=== PATIENT | female | born 1955 | race Caucasian/White ===

== ENCOUNTER 2021-03-08 11:00 | Emergency (ER) | payer OTHER ==
[~2021-03-08 11:00] MED LIST: ATROVENT HFA12.9 GM; CATAPRES0.3 MG; HYDROCODON-ACE1 EA12 PO; INDOMETHACIN25 MG PO; PREDNISONE5 MG
[2021-03-08] MEDS ORDERED: KETOROLAC TROMETHAMINE 30 MG/ML VIAL ONE (11:22)
[2021-03-08] MEDS ORDERED: LIDOCAINE 4% PATCH TP ONE (11:22)
== END 2021-03-08 15:20 | disposition home or self-care (01) ==
LOC: ER 11:00
DX: M54.5 Low back pain (principal); X50.1XXA Overexertion from prolonged static or awkward postures, initial encounter; E11.65 Type 2 diabetes mellitus with hyperglycemia; I50.9 Heart failure, unspecified; J44.9 Chronic obstructive pulmonary disease, unspecified; Z95.5 Presence of coronary angioplasty implant and graft; Z86.73 Personal history of transient ischemic attack (TIA), and cerebral infarction without residual deficits
CPT/HCPCS: 72131; 99284; J1885

== ENCOUNTER 2024-01-14 15:25 | Emergency (ER) | payer MEDICARE, OTHER ==
[~2024-01-14] VITALS: Ht 165.1 cm; Wt 111.1 kg
[2024-01-14 18:50] VITALS: O2SAT 96
== END 2024-01-14 19:16 ==
LOC: ER 15:34
DX: E83.52 Hypercalcemia (principal); I10 Essential (primary) hypertension; E11.9 Type 2 diabetes mellitus without complications; J44.9 Chronic obstructive pulmonary disease, unspecified; I50.9 Heart failure, unspecified; Z95.5 Presence of coronary angioplasty implant and graft
CPT/HCPCS: 36415; 82310; 99284